=== PATIENT | female | born 1985 | race Caucasian/White ===

== ENCOUNTER 2018-01-19 08:50 | Emergency (ER) | payer OTHER, MEDICAID ==
[~2018-01-19] VITALS: Ht 157.5 cm; Wt 52.6 kg
[~2018-01-19 08:50] MED LIST: ACYCLOVIR 200200 MG PO; ACYCLOVIR 400400 MG PO; ASPIRIN325 PO; CIPRO250 M1 PO; CIPROFLOXACIN500 M1 PO; ERYTHROMYCIN E3.5 G1 OPHTHALMIC; FLOMAX0.4 MG PO; HYDROCODON-ACE1 EAC7 PO; HYDROCODONE-AP1 EAC6 PO; IBUPROFEN 600600 M1 PO; IBUPROFEN 800800 M1 PO; LEXAPRO 10 MG T10 M2 PO; MEDROLDOSEPACK PO; NOHOMEMEDICATIONS; NORTRIPTYLINE H10 M1 PO; No Home Meds; ONDANSETRON HCL4 M2 PO; PROPRANOLOL 1010 M1 PO; PYRIDIUM200 MG PO; ROBAXIN 750 MG750 M1 PO; XANAX 0.25 MG0.25 MG PO; ZOFRAN ODT4 MG PO; ZOFRAN ODT4 MG SUBLING; ZOFRAN4 MG PO; ZPAK PO
[2018-01-19 08:59] VITALS: BP 118/83
[2018-01-19] MEDS ORDERED: IBUPROFEN 800800 M1 PO (09:01)
[2018-01-19] MEDS ORDERED: PERCOCET 5-3251 EACH PO (09:05)
[2018-01-19] MEDS ORDERED: AMOXICILLIN 50500 MG PO (09:05)
== END 2018-01-19 09:20 | disposition home or self-care (01) ==
LOC: M.ERS 08:50
DX: G89.18 Other acute postprocedural pain (principal); K08.89 Other specified disorders of teeth and supporting structures; G43.909 Migraine, unspecified, not intractable, without status migrainosus; Z88.1 Allergy status to other antibiotic agents; Z88.5 Allergy status to narcotic agent; Z88.6 Allergy status to analgesic agent